=== PATIENT | female | born 1970 | race Caucasian/White ===

== ENCOUNTER → 2016-11-11 | Outpatient (REF) | payer MEDICARE, MEDICAID ==
[~2016-11-11] MED LIST: ASPI1TAB PO; AUGM875T27 PO; CALC600T7 PO; FLUN25SP; LEVO100T54 PO; LORA10TA2 PO; METF500T PO; NEXP1IMP SC; OMEP20CA3 PO; SIME180C PO; TYLE325T5 PO; VITA100037 PO
[2016-11-11 13:50] LABS: ALBUMIN 3.8 GM/DL (3.2-5.2); ALBUMIN/GLOBULIN RATIO 0.97 (1.00-1.93); ALKALINE PHOSPHATASE 100 U/L (45-117); ALT/SGPT 26 U/L (12-78); ANION GAP 10 MEQ/L (8-16); AST/SGOT 14 U/L (15-37); BILIRUBIN,TOTAL 0.2 MG/DL (0.2-1.0); BLOOD UREA NITROGEN 18 MG/DL (7-18); CALCIUM LEVEL 8.8 MG/DL (8.5-10.1); CARBON DIOXIDE LEVEL 26 MEQ/L (21-32); CHLORIDE LEVEL 105 MEQ/L (98-107); CREATININE FOR GFR 0.69 MG/DL (0.55-1.02); FREE T4 0.99 NG/DL (0.76-1.46); GLOMERULAR FILTRATION RATE > 60.0 (>58); GLUCOSE, FASTING 101 MG/DL (70-105); POTASSIUM SERUM 4.4 MEQ/L (3.5-5.1); SODIUM LEVEL 141 MEQ/L (136-145); TOTAL PROTEIN 7.7 GM/DL (6.4-8.2)
== END ==
LOC: M SFHCPLAZ 10:20
PROVIDERS: ATTEND Nurse Practitioner Family
DX: E88.81 Metabolic syndrome and other insulin resistance (principal); E03.9 Hypothyroidism, unspecified; E55.9 Vitamin D deficiency, unspecified

== ENCOUNTER → 2017-01-02 | Outpatient (REF) | payer MEDICARE, MEDICAID ==
[~2017-01-02] MED LIST changes: -AUGM875T27 PO; +AUGM875T28 PO; -METF500T PO; +METF500T13 PO; -VITA100037 PO; +VITA100067 PO
== END ==
LOC: M SFHCWAGY 13:43
PROVIDERS: ATTEND Nurse Practitioner Family
DX: Z12.4 Encounter for screening for malignant neoplasm of cervix (principal)
CPT/HCPCS: G0101; G0123

== ENCOUNTER → 2017-03-10 | Outpatient (REF) | payer MEDICARE, MEDICAID ==
[2017-03-10 11:57] LABS: ALBUMIN 3.5 GM/DL (3.2-5.2); ALBUMIN/GLOBULIN RATIO 0.92 (1.00-1.93); ALKALINE PHOSPHATASE 99 U/L (45-117); ALT/SGPT 23 U/L (12-78); ANION GAP 9 MEQ/L (8-16); AST/SGOT 10 U/L (15-37); BILIRUBIN,TOTAL 0.2 MG/DL (0.2-1.0); BLOOD UREA NITROGEN 14 MG/DL (7-18); CALCIUM LEVEL 9.2 MG/DL (8.5-10.1); CARBON DIOXIDE LEVEL 27 MEQ/L (21-32); CHLORIDE LEVEL 105 MEQ/L (98-107); CHOLESTEROL LEVEL 197 MG/DL (<200); CREATININE FOR GFR 0.59 MG/DL (0.55-1.02); GLOMERULAR FILTRATION RATE > 60.0 (>58); GLUCOSE, FASTING 116 MG/DL (70-105); POTASSIUM SERUM 4.3 MEQ/L (3.5-5.1); SODIUM LEVEL 141 MEQ/L (136-145); TOTAL PROTEIN 7.3 GM/DL (6.4-8.2); TRIGLYCERIDES LEVEL 295 MG/DL (<150)
== END ==
LOC: M SFHCPLAZ 09:15
PROVIDERS: ATTEND Nurse Practitioner Family
DX: E88.81 Metabolic syndrome and other insulin resistance (principal); E03.9 Hypothyroidism, unspecified; E55.9 Vitamin D deficiency, unspecified; Z79.899 Other long term (current) drug therapy

== ENCOUNTER → 2017-03-17 | Outpatient (CLI) | payer MEDICARE, MEDICAID ==
--- NOTE | 2017-03-17 10:17 | REPMRS ---
Patient History The patient states she had a clinical breast exam in 01/12 Patient is nulliparous. No known family history of cancer. Benign lumpectomy of the right breast, September 10, 2015. Benign ultrasound-guided core biopsy of both breasts, March 08, 2008. Taking hormonal contraceptives for 8 years. Digital Woman Screen Mammo: March 17, 2017 - Exam #: [id number] Bilateral CC and MLO view(s) were taken. Technologist: Rachel Morales, Technologist Prior study comparison: March 14, 2016, bilateral digital mammo screening bilat, performed at [facility]. November 29, 2014, right breast digital mammo diagnostic unilateral, performed at [facility]. FINDINGS: There are scattered fibroglandular densities. There has been no change in the appearance of the mammogram from the prior studies. There is a mild amount of residual fibroglandular tissue which is fairly symmetric. There is no interval development of dominant mass, architectural distortion, or clustered microcalcification suggestive of malignancy. ASSESSMENT: BI-RADS/ACR category 1 mammogram. Negative. Recommendation Routine screening mammogram in 1 year (for women over age 40). This mammogram was interpreted with the aid of an FDA-approved computer-aided dectection system. Electronically Signed By: Judah Neri MD 03/17/17 [id number]
== END ==
LOC: M WHC 08:52
PROVIDERS: ATTEND Nurse Practitioner Family
DX: Z12.31 Encounter for screening mammogram for malignant neoplasm of breast (principal); Z92.0 Personal history of contraception; Z85.3 Personal history of malignant neoplasm of breast; Z92.89 Personal history of other medical treatment
CPT/HCPCS: G0202; G0463

== ENCOUNTER → 2017-09-01 | Outpatient (REF) | payer MEDICARE, MEDICAID ==
[2017-09-01 11:38] LABS: ALBUMIN 3.6 GM/DL (3.2-5.2); ALBUMIN/GLOBULIN RATIO 0.88 (1.00-1.93); ALKALINE PHOSPHATASE 101 U/L (45-117); ALT/SGPT 26 U/L (12-78); ANION GAP 8 MEQ/L (8-16); AST/SGOT 11 U/L (7-37); BILIRUBIN,TOTAL 0.2 MG/DL (0.2-1.0); BLOOD UREA NITROGEN 13 MG/DL (7-18); CALCIUM LEVEL 9.2 MG/DL (8.5-10.1); CARBON DIOXIDE LEVEL 27 MEQ/L (21-32); CHLORIDE LEVEL 107 MEQ/L (98-107); CREATININE FOR GFR 0.67 MG/DL (0.55-1.30); FREE T4 1.04 NG/DL (0.76-1.46); GLOMERULAR FILTRATION RATE > 60.0 (>58); GLUCOSE, FASTING 106 MG/DL (70-100); POTASSIUM SERUM 4.4 MEQ/L (3.5-5.1); SODIUM LEVEL 142 MEQ/L (136-145); THYROID STIMULATING HORMONE 0.967 uIU/ML (0.358-3.740); TOTAL PROTEIN 7.7 GM/DL (6.4-8.2)
[2017-09-01 11:40] LABS: ESTIMATED AVERAGE GLUCOSE 134 MG/DL (60-110); HEMOGLOBIN A1c 6.3 %
[2017-09-01 11:49] LABS: TOTAL 25(OH) VITAMIN D 39.1 NG/ML (30.0-100.0)
== END ==
LOC: M SFHCPLAZ 07:49
DX: E88.81 Metabolic syndrome and other insulin resistance (principal); E03.9 Hypothyroidism, unspecified; E55.9 Vitamin D deficiency, unspecified; Z79.899 Other long term (current) drug therapy
CPT/HCPCS: 84443

== ENCOUNTER → 2017-12-09 | Outpatient (REF) | payer MEDICARE, MEDICAID ==
[2017-12-09 12:18] LABS: ALBUMIN 3.6 GM/DL (3.2-5.2); ALKALINE PHOSPHATASE 99 U/L (45-117); ALT/SGPT 27 U/L (12-78); ANION GAP 10 MEQ/L (8-16); AST/SGOT 10 U/L (7-37); BILIRUBIN,TOTAL 0.2 MG/DL (0.2-1.0); BLOOD UREA NITROGEN 15 MG/DL (7-18); CALCIUM LEVEL 9.4 MG/DL (8.5-10.1); CARBON DIOXIDE LEVEL 26 MEQ/L (21-32); CHLORIDE LEVEL 107 MEQ/L (98-107); CHOLESTEROL LEVEL 185 MG/DL (<200); CHOLESTEROL RISK RATIO 3.854 (<5); CREATININE FOR GFR 0.68 MG/DL (0.55-1.30); FREE T4 1.09 NG/DL (0.76-1.46); GLOMERULAR FILTRATION RATE > 60.0 (>58); GLUCOSE, FASTING 106 MG/DL (70-100); HDL CHOLESTEROL 48 MG/DL (>40); LDL CHOLESTEROL 114.4 MG/DL (<100); NON-HDL-C 137 MG/DL; POTASSIUM SERUM 4.6 MEQ/L (3.5-5.1); SODIUM LEVEL 143 MEQ/L (136-145); THYROID STIMULATING HORMONE 0.431 uIU/ML (0.358-3.740); TOTAL PROTEIN 7.6 GM/DL (6.4-8.2); TRIGLYCERIDES LEVEL 113 MG/DL (<150)
[2017-12-09 13:58] LABS: ESTIMATED AVERAGE GLUCOSE 131 MG/DL (60-110); HEMOGLOBIN A1c 6.2 %
== END ==
LOC: M SFHCPLAZ 09:41
DX: E88.81 Metabolic syndrome and other insulin resistance (principal); E03.9 Hypothyroidism, unspecified; R73.01 Impaired fasting glucose
CPT/HCPCS: 84443

== ENCOUNTER → 2017-12-16 | Outpatient (CLI) | payer MEDICARE, MEDICAID | LOC: M WUC 12:42 | DX: M25.512 Pain in left shoulder (principal) | CPT/HCPCS: 73030; G0463 ==

== ENCOUNTER → 2018-03-18 | Outpatient (REF) | payer MEDICARE, MEDICAID ==
[2018-03-18 13:49] LABS: ANION GAP 10 MEQ/L (8-16); BLOOD UREA NITROGEN 16 MG/DL (7-18); CALCIUM LEVEL 9.6 MG/DL (8.5-10.1); CARBON DIOXIDE LEVEL 25 MEQ/L (21-32); CHLORIDE LEVEL 106 MEQ/L (98-107); CREATININE FOR GFR 0.66 MG/DL (0.55-1.30); FREE T4 0.97 NG/DL (0.76-1.46); GLOMERULAR FILTRATION RATE > 60.0 (>58); GLUCOSE, FASTING 70 MG/DL (70-100); POTASSIUM SERUM 4.5 MEQ/L (3.5-5.1); SODIUM LEVEL 141 MEQ/L (136-145); THYROID STIMULATING HORMONE 0.815 uIU/ML (0.358-3.740)
[2018-03-18 13:55] LABS: TOTAL 25(OH) VITAMIN D 39.4 NG/ML (30.0-100.0)
[2018-03-18 15:34] LABS: ESTIMATED AVERAGE GLUCOSE 123 MG/DL (60-110); HEMOGLOBIN A1c 5.9 %
== END ==
LOC: M SFHCPLAZ 09:49
DX: E03.9 Hypothyroidism, unspecified (principal); E88.81 Metabolic syndrome and other insulin resistance; E55.9 Vitamin D deficiency, unspecified
CPT/HCPCS: 84443

== ENCOUNTER → 2018-09-22 | Outpatient (REF) | payer MEDICARE, MEDICAID ==
[~2018-09-22] MED LIST changes: +LORA-243 PO; -LORA10TA2 PO
[2018-09-22 11:54] LABS: ALBUMIN 3.7 GM/DL (3.2-5.2); ALT/SGPT 24 U/L (12-78); BILIRUBIN,TOTAL 0.2 MG/DL (0.2-1.0); BLOOD UREA NITROGEN 19 MG/DL (7-18); CARBON DIOXIDE LEVEL 28 MEQ/L (21-32); CHLORIDE LEVEL 107 MEQ/L (98-107); CHOLESTEROL LEVEL 222 MG/DL (<200); CHOLESTEROL RISK RATIO 4.111 (<5); CREATININE FOR GFR 0.61 MG/DL (0.55-1.30); FREE T4 1.14 NG/DL (0.76-1.46); GLOMERULAR FILTRATION RATE > 60.0 (>58); GLUCOSE, FASTING 116 MG/DL (70-100); HDL CHOLESTEROL 54 MG/DL (>40); LDL CHOLESTEROL 147 MG/DL (<100); NON-HDL-C 168 MG/DL; POTASSIUM SERUM 4.1 MEQ/L (3.5-5.1); SODIUM LEVEL 141 MEQ/L (136-145); THYROID STIMULATING HORMONE 0.332 uIU/ML (0.358-3.740); TOTAL 25(OH) VITAMIN D 32.5 NG/ML (30.0-100.0); TOTAL PROTEIN 7.4 GM/DL (6.4-8.2); TRIGLYCERIDES LEVEL 105 MG/DL (<150)
[2018-09-22 12:08] LABS: HEMOGLOBIN A1c 6.4 %
== END ==
LOC: M SFHCPLAZ 09:23
PROVIDERS: ATTEND Nurse Practitioner Family
DX: E88.81 Metabolic syndrome and other insulin resistance (principal); E03.9 Hypothyroidism, unspecified; E78.1 Pure hyperglyceridemia; E55.9 Vitamin D deficiency, unspecified

== ENCOUNTER → 2018-10-08 | Outpatient (REF) | payer MEDICARE, MEDICAID ==
[~2018-10-08] MED LIST changes: -ASPI1TAB PO; +ASPI81TA26 PO
== END ==
LOC: M SFHCPLAZ 16:32
PROVIDERS: ATTEND Physician Assistant
DX: R10.9 Unspecified abdominal pain (principal)

== ENCOUNTER → 2018-10-11 | Outpatient (CLI) | payer MEDICARE, MEDICAID ==
--- NOTE | 2018-10-11 11:16 | REP ---
UNILATERAL LEFT RIBS, PA CHEST, FIVE VIEWS: HISTORY: Flank pain. COMPARISON: 08/09/2014. The lungs are clear. The heart is normal in size. The pulmonary vasculature is normal in appearance. The bony structure is intact. IMPRESSION: No acute disease. Electronically Signed by Brian Wheeler MD 10/11/2018 11:21 A
== END ==
LOC: M WUC 10:06
PROVIDERS: ATTEND Physician Assistant
DX: R10.9 Unspecified abdominal pain (principal)

== ENCOUNTER → 2018-11-29 | Outpatient (CLI) | payer MEDICARE, MEDICAID ==
[~2018-11-29] MED LIST changes: +E-Z-GAS II EFFERVESCENT PACKET (SODIUM BICARB./CITRIC ACID/SIMETHICONE) As Ordered ONE; +E-Z-HD 98% w/w 340GM SUSP BTL As Ordered ONE; +E-Z-PAQUE 96% w/w SUSP 176GM BTL As Ordered ONE
--- NOTE | 2018-11-30 11:55 | REP ---
Examination Requested: Esophagram Barium Swallow Reason For Exam/Comment: Dysphasia Esophagram: The procedure was performed BOBBY Hua, under the direct supervision of Dr. Neri. The images were reviewed with Dr. Neri. A single PA chest x-ray is submitted as a turnstile collector film. The superior mediastinal structures are midline. The heart size is within normal limits. The lungs are clear. Liquid barium and gas producing granules were given in the erect position as well as liquid barium in the prone oblique position, in order to perform a double contrast esophagram examination. Oral and pharyngeal stages of the examination were unremarkable. Esophageal transport is efficient and there is no esophagitis, stricture, or mucosal ring noted. There is no hiatal hernia noted. Gastroesophageal reflux is demonstrated past the level of the jodi. Impression: 1. Gastroesophageal reflux past the level of the jodi. 0.4 minutes of fluoroscopy time was utilized for this procedure. Reviewed by BOBBY Adam 11/29/2018 04:13 P Electronically Signed by Judah Neri MD 11/30/2018 11:45 A
== END ==
LOC: M RAD 09:53
PROVIDERS: ATTEND Internal Medicine Gastroenterology
DX: K21.9 Gastro-esophageal reflux disease without esophagitis (principal)

== ENCOUNTER 2019-01-20 10:22 | Day surgery (SDC) | payer MEDICARE, MEDICAID ==
[~2019-01-20] VITALS: Ht 157.5 cm; Wt 92.1 kg
[~2019-01-20 10:22] MED LIST changes: -E-Z-GAS II EFFERVESCENT PACKET (SODIUM BICARB./CITRIC ACID/SIMETHICONE) As Ordered ONE; -E-Z-HD 98% w/w 340GM SUSP BTL As Ordered ONE; -E-Z-PAQUE 96% w/w SUSP 176GM BTL As Ordered ONE; +LEVO88TA3 PO; +NON-325T5 PO; +NS 1,000 ML IV ONE; -OMEP20CA3 PO; +OMEP20CA4 PO; +VITA-112 PO
[2019-01-20] MEDS ORDERED: PROPOFOL 200 MG/20 ML VIAL As Ordered ONE (13:05)
[2019-01-20] MEDS ORDERED: LIDOCAINE 2% INJ 100 MG/5 ML SDV (FOR ANES.) As Ordered ONE (13:05)
--- NOTE | 2019-01-20 13:10 | ROOR ---
Patient Name: Graciela Espinoza Procedure Date: 01/20/2019 12:55 PM Date of : 1970 Age: 48 Room: [facility] Gender: Female Note Status: Finalized Procedure: Upper GI endoscopy Indications: Oral phase dysphagia, Heartburn Providers: Harshil KOHLER MD Referring MD: Adela Smith NP Requesting Provider: Medicines: Monitored Anesthesia Care Complications: No immediate complications. Procedure: Pre-Anesthesia Assessment: - The heart rate, respiratory rate, oxygen saturations, blood pressure, adequacy of pulmonary ventilation, and response to care were monitored throughout the procedure. The Endoscope was introduced through the mouth, and advanced to the second part of duodenum. The upper GI endoscopy was accomplished without difficulty. The patient tolerated the procedure well. Findings: The examined esophagus was normal. No endoscopic abnormality was evident in the esophagus to explain the patient's complaint of dysphagia. This was biopsied with a cold forceps for evaluation of eosinophilic esophagitis. Scattered mild inflammation was found in the gastric antrum. Biopsies were taken with a cold forceps for histology. The exam of the stomach was otherwise normal. (large volume) The examined duodenum was normal. Impression: - Normal esophagus. No endoscopic esophageal abnormality to explain patient's dysphagia. Biopsied. - Mild antral gastritis. Biopsied. - Otherwise normal stomach. - Normal examined duodenum. Recommendation: - Use properly fitting dentures to eat/masticate. - Observe patient's clinical course. - Telephone endoscopist for pathology results in 2 weeks. Harshil Kohler MD Harshil KOHLER MD 01/20/2019 1:09:40 PM Electronically signed by Harshil KOHLER MD Number of Addenda: 0 Note Initiated On: 01/20/2019 12:55 PM Estimated Blood Loss: Estimated blood loss: none.
[2019-01-20 13:39] VITALS: BP 148/100
== END 2019-01-20 13:41 | disposition home or self-care (01) ==
LOC: M OPP 10:22
PROVIDERS: ATTEND Internal Medicine Gastroenterology
DX: R13.11 Dysphagia, oral phase (principal); K29.70 Gastritis, unspecified, without bleeding; E11.9 Type 2 diabetes mellitus without complications; I12.9 Hypertensive chronic kidney disease with stage 1 through stage 4 chronic kidney disease, or unspecified chronic kidney disease; I25.10 Atherosclerotic heart disease of native coronary artery without angina pectoris; E78.5 Hyperlipidemia, unspecified; N18.9 Chronic kidney disease, unspecified; E03.9 Hypothyroidism, unspecified; K21.9 Gastro-esophageal reflux disease without esophagitis; G80.9 Cerebral palsy, unspecified; E55.9 Vitamin D deficiency, unspecified; Z79.84 Long term (current) use of oral hypoglycemic drugs; Z79.899 Other long term (current) drug therapy

== ENCOUNTER → 2019-02-24 | Outpatient (REF) | payer MEDICARE, MEDICAID ==
[~2019-02-24] MED LIST changes: -NS 1,000 ML IV ONE
[2019-02-24 10:36] LABS: ALBUMIN 3.7 GM/DL (3.2-5.2); ALT/SGPT 35 U/L (12-78); BILIRUBIN,TOTAL 0.2 MG/DL (0.2-1.0); BLOOD UREA NITROGEN 18 MG/DL (7-18); CARBON DIOXIDE LEVEL 27 MEQ/L (21-32); CHLORIDE LEVEL 106 MEQ/L (98-107); CREATININE FOR GFR 0.74 MG/DL (0.55-1.30); FREE T4 1.03 NG/DL (0.76-1.46); GLOMERULAR FILTRATION RATE > 60.0 (>58); GLUCOSE, FASTING 120 MG/DL (70-100); MAGNESIUM LEVEL 1.7 MG/DL (1.8-2.4); POTASSIUM SERUM 4.1 MEQ/L (3.5-5.1); SODIUM LEVEL 141 MEQ/L (136-145); THYROID STIMULATING HORMONE 0.735 uIU/ML (0.358-3.740); TOTAL PROTEIN 7.6 GM/DL (6.4-8.2)
[2019-02-24 11:01] LABS: TOTAL 25(OH) VITAMIN D 43.2 NG/ML (30.0-100.0); VITAMIN B12 LEVEL 319 PG/ML
[2019-02-24 11:25] LABS: FOLATE 8.6 NG/ML
== END ==
LOC: M SFHCPLAZ 08:47
PROVIDERS: ATTEND Nurse Practitioner Family
DX: E88.81 Metabolic syndrome and other insulin resistance (principal); E03.9 Hypothyroidism, unspecified; K21.9 Gastro-esophageal reflux disease without esophagitis; E55.9 Vitamin D deficiency, unspecified
CPT/HCPCS: 36415; 80053; 82306; 82607; 82746; 83735; 84439; 84443; G0463

== ENCOUNTER → 2019-03-10 | Outpatient (CLI) | payer MEDICARE, MEDICAID ==
--- NOTE | 2019-03-10 11:27 | REPMRS ---
Patient History The patient states she had a clinical breast exam in 02/2019. Patient is nulliparous. No known family history of cancer. Benign lumpectomy of the right breast, September 10, 2015. Benign ultrasound-guided core biopsy of both breasts, March 08, 2008. Taking hormonal contraceptives for 10 years. 3D TOMOSYNTHESIS WAS PERFORMED. The [facility] lifetime risk for breast cancer is 12.8%. Digital Woman Screen Mammo: March 10, 2019 - Exam #: [id number] Bilateral CC and MLO view(s) were taken. Technologist: Tanesha Maya, Technologist Prior study comparison: March 09, 2018, bilateral digital woman screen mammo performed at [facility]. March 17, 2017, digital woman screen mammo performed at [facility]. FINDINGS: There are scattered fibroglandular densities. There has been no change in the appearance of the mammogram from the prior studies. There is a mild amount of residual fibroglandular tissue which is fairly symmetric. There is no interval development of dominant mass, architectural distortion, or clustered microcalcification suggestive of malignancy. Assessment: BI-RADS/ACR category 1 mammogram. Negative Mammogram. Recommendation Routine screening mammogram in 1 year (for women over age 40). This mammogram was interpreted with the aid of an FDA-approved computer-aided dectection system. Electronically Signed By: Judah eNri MD 03/10/19 [id number]
== END ==
LOC: M WHC 10:16
PROVIDERS: ATTEND Nurse Practitioner Family
DX: Z01.419 Encounter for gynecological examination (general) (routine) without abnormal findings (principal); Z12.31 Encounter for screening mammogram for malignant neoplasm of breast; Z86.018 Personal history of other benign neoplasm; Z92.0 Personal history of contraception
CPT/HCPCS: 77063; 77067; G0101

== ENCOUNTER → 2019-03-14 | Outpatient (REF) | payer MEDICARE, MEDICAID | LOC: M SFHCWAGY 17:44 | PROVIDERS: ATTEND Nurse Practitioner Women's Health | DX: S41.102D Unspecified open wound of left upper arm, subsequent encounter (principal) | CPT/HCPCS: 87070; 87077; 87186; G0463 ==

== ENCOUNTER 2019-03-16 09:14 | Emergency (ER) | payer MEDICARE, MEDICAID ==
[~2019-03-16] VITALS: Ht 157.5 cm; Wt 91.0 kg
[2019-03-16 10:48] LABS: BASO # 0.1 10^3/uL (0.0-0.2); BASO % 1.4 % (0.0-1.0); EOS # 0.1 10^3/uL (0.0-0.5); EOS % 1.7 % (0.0-3.0); HEMATOCRIT 40.1 % (36.0-47.0); HEMOGLOBIN 13.2 g/dl (12.0-15.5); LYMPH # 1.9 10^3/uL (1.5-5.0); LYMPH % 23.3 % (24.0-44.0); MEAN CORPUSCULAR HEMOGLOBIN 27.4 pg (27.0-33.0); MEAN CORPUSCULAR HGB CONC 32.9 g/dl (32.0-36.5); MEAN CORPUSCULAR VOLUME 83.4 fl (80.0-96.0); MONO # 0.5 10^3/uL (0.0-0.8); MONO % 6.3 % (0.0-5.0); NEUTROPHILS # 5.5 10^3/uL (1.5-8.5); NEUTROPHILS % 67.1 % (36.0-66.0); PLATELET COUNT, AUTOMATED 303 10^3/uL (150-450); RED BLOOD COUNT 4.81 10^6/uL (4.00-5.40); WHITE BLOOD COUNT 8.1 10^3/uL (4.0-10.0)
[2019-03-16 11:12] LABS: BLOOD UREA NITROGEN 11 MG/DL (7-18); C REACTIVE PROTEIN QUANTITATIV 0.93 MG/DL (0.00-0.30); CALCIUM LEVEL 9.3 MG/DL (8.5-10.1); CARBON DIOXIDE LEVEL 21 MEQ/L (21-32); CHLORIDE LEVEL 107 MEQ/L (98-107); CREATININE FOR GFR 0.85 MG/DL (0.55-1.30); GLOMERULAR FILTRATION RATE > 60.0 (>58); GLUCOSE, FASTING 93 MG/DL (70-100); POTASSIUM SERUM 4.1 MEQ/L (3.5-5.1); SODIUM LEVEL 138 MEQ/L (136-145)
[2019-03-16 11:24] LABS: ERYTHROCYTE SEDIMENTATION RATE 46 mm/hr (0-20)
[2019-03-16] MEDS ORDERED: NS 2,730 ML in IV 1 EA IV ONE (12:30)
[2019-03-16] MEDS ORDERED: VANCOMYCIN HCL 500 MG in D5W MINI-BAG PLUS 100 ML IV ONE (16:00)
--- NOTE | 2019-03-16 18:26 | REP ---
REASON: Assess position of implantable device. There is a curvilinear radiodensity in the distal medial left upper arm soft-tissues at the leve of the distal diaphysis of the humerus. This curvilinear radiodensity measures approximately 4 cm in length x 1.6 mm in width. The imaged osseous structures are normal. IMPRESSION: Implanted device as described above. Electronically Signed by Fortunato Long DO 03/16/2019 07:15 P
[2019-03-16 18:27] VITALS: BP 148/79
--- NOTE | 2019-03-17 13:25 | CR ---
DATE OF CONSULTATION: 03/16/2019 REASON FOR CONSULTATION: Infected Nexplanon. HISTORY OF PRESENT ILLNESS: The patient is a 48-year-old female who presented to the emergency room after having Nexplanon attempted removal a couple weeks ago by her primary. They were unable to remove it and since then she has had some slight purulent drainage from the site, but they were never able to remove the device. She came into emergency room and had some cultures obtained. She has already been on antibiotics for a week. Her white count is normal. No significant pain or swelling in the area, just persistent drainage and she wants it removed. Her MARKETING DATABASE COORDINATOR has already evaluated her at the bedside and they are not comfortable removing it, so they have asked to me to take a look as well. Currently she does have some slight tenderness in the area. There is some swelling overlying it. The device itself appears to be deep and is not easily palpable. No images have been obtained to find the exact location. No nausea or vomiting. No fevers or chills. She is on outpatient antibiotics already. PAST MEDICAL HISTORY: 1. Cerebral palsy. 2. Mental retardation. 3. Hypothyroidism. 4. Grave's disease. 5. Vitamin D deficiency. 6. Gastroesophageal reflux disease. 7. Diabetes. PAST SURGICAL HISTORY: Nose fracture repair, breast biopsies, Nexplanon implants. ALLERGIES: None. HOME MEDICATIONS: Please see medical record. REVIEW OF SYSTEMS: Pertinent and positive stated in the history of present illness. SOCIAL HISTORY: Denies drug, alcohol, tobacco abuse. FAMILY HISTORY: Noncontributory. PHYSICAL EXAMINATION: GENERAL: Alert and oriented times three. No acute distress. Vitals: Temperature 99, pulse 82, respirations 17, blood pressure 174/83, pulse ox 99% on room air. HEENT: Pupils equal round and react to light accommodation. Heart: S1, S2 regular rate and rhythm. Lungs: Clear to auscultation bilaterally. Abdomen: Soft, nontender, nondistended. Extremities: On the left upper medial arm there is about a 1/2 cm opening in the skin with some slight serous drainage currently. There is induration and swelling around it. No real erythema. No palpable fluid collections and no obvious purulent drainage. I was able palpate the entire upper arm and did not feel the implant itself. I also do not feel there is any obvious abscess formation there. LABORATORY DATA: White count 8.1, hemoglobin 13.2, lactic acid is 3 and 4-hour followup was 0.8. ASSESSMENT/PLAN: Patient is a 48-year-old female with Nexplanon implant in the left upper extremity that is unable to be removed at this point and likely has some infection, likely just skin north secondary to attempted removal. RECOMMENDATIONS: Continue with antibiotics at this time and discharge her home. I have asked them to obtain x-rays before she leaves and then send her to see me in the office tomorrow and I will reassess it with the x-rays to see if it helps me to triangulated it. If it easily palpable then I will remove it in the office. If not, then I will schedule with her to be done electively through the operating room.
== END 2019-03-16 18:28 | disposition home or self-care (01) ==
LOC: M ED 09:14
DX: R22.32 Localized swelling, mass and lump, left upper limb (principal); T85.79XA Infection and inflammatory reaction due to other internal prosthetic devices, implants and grafts, initial encounter; X58.XXXA Exposure to other specified factors, initial encounter; Y92.89 Other specified places as the place of occurrence of the external cause; E11.9 Type 2 diabetes mellitus without complications; K21.9 Gastro-esophageal reflux disease without esophagitis; E03.9 Hypothyroidism, unspecified; G80.9 Cerebral palsy, unspecified; F79 Unspecified intellectual disabilities; E55.9 Vitamin D deficiency, unspecified; Z79.899 Other long term (current) drug therapy; Z79.3 Long term (current) use of hormonal contraceptives; Z79.84 Long term (current) use of oral hypoglycemic drugs
CPT/HCPCS: 36415; 73060; 80048; 83605; 85025; 85652; 86140; 96361; 96374; 99284; J3370

== ENCOUNTER 2019-05-30 12:58 | Emergency (ER) | payer MEDICARE, MEDICAID ==
[~2019-05-30] VITALS: Ht 157.5 cm; Wt 93.2 kg
[2019-05-30] MEDS ORDERED: ASPIRIN 81 MG CHEW TABLET PO ONE (13:45)
[2019-05-30] MEDS ORDERED: GI COCKTAIL 50ML BTL(HYOSCYAMINE/MAALOX/LIDOCAINE VISCOUS)(1:3:1) PO ONE (13:45)
--- NOTE | 2019-05-30 14:01 | REP ---
CHEST, SINGLE VIEW: There is no evidence of acute infiltrate. No pleural effusion is seen. The heart is normal in size. The mediastinal silhouette is unremarkable. The visualized osseous structures are intact. There are degenerative changes of the spine. IMPRESSION: No acute pulmonary disease. Electronically Signed by Judah Neri MD 05/30/2019 03:25 P
[2019-05-30 14:18] LABS: BASO # 0.1 10^3/uL (0.0-0.2); BASO % 1.3 % (0.0-1.0); EOS # 0.1 10^3/uL (0.0-0.5); EOS % 0.7 % (0.0-3.0); HEMATOCRIT 38.2 % (36.0-47.0); HEMOGLOBIN 12.5 g/dl (12.0-15.5); LYMPH # 2.2 10^3/uL (1.5-5.0); MEAN CORPUSCULAR HEMOGLOBIN 27.4 pg (27.0-33.0); MEAN CORPUSCULAR HGB CONC 32.7 g/dl (32.0-36.5); MEAN CORPUSCULAR VOLUME 83.6 fl (80.0-96.0); MONO # 0.4 10^3/uL (0.0-0.8); MONO % 6.2 % (0.0-5.0); NEUTROPHILS # 4.2 10^3/uL (1.5-8.5); NEUTROPHILS % 60.5 % (36.0-66.0); PLATELET COUNT, AUTOMATED 307 10^3/uL (150-450); RED BLOOD COUNT 4.57 10^6/uL (4.00-5.40); WHITE BLOOD COUNT 6.9 10^3/uL (4.0-10.0)
[2019-05-30] MEDS ORDERED: LABETALOL HCL 100 MG/20 ML VIAL IV STA (14:19)
[2019-05-30 14:28] LABS: INR 1.04; PROTHROMBIN TIME 13.3 SECONDS (11.8-14.0)
[2019-05-30 14:53] LABS: ALBUMIN 3.6 GM/DL (3.2-5.2); ALT/SGPT 38 U/L (12-78); BILIRUBIN,DIRECT < 0.1 MG/DL (0.0-0.2); BILIRUBIN,TOTAL 0.2 MG/DL (0.2-1.0); BLOOD UREA NITROGEN 14 MG/DL (7-18); CARBON DIOXIDE LEVEL 28 MEQ/L (21-32); CHLORIDE LEVEL 107 MEQ/L (98-107); CK-MB VALUE MASS 1.1 NG/ML (<3.6); CPK CREATINE PHOSPHOKINASE 116 U/L (26-192); CREATININE FOR GFR 0.72 MG/DL (0.55-1.30); GLOMERULAR FILTRATION RATE > 60.0 (>58); GLUCOSE, FASTING 101 MG/DL (70-100); LIPASE 66 U/L (73-393); MB/CK RELATIVE INDEX 0.95 (< OR =4); POTASSIUM SERUM 3.7 MEQ/L (3.5-5.1); SODIUM LEVEL 142 MEQ/L (136-145); TOTAL PROTEIN 7.9 GM/DL (6.4-8.2); TROPONIN I < 0.02 NG/ML (< 0.10)
[2019-05-30 16:00] VITALS: BP 131/90
--- NOTE | 2019-05-30 17:37 | ECGEPIP ---
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
== END 2019-05-30 16:16 | disposition home or self-care (01) ==
LOC: M ED 12:58
DX: R07.89 Other chest pain (principal); I44.4 Left anterior fascicular block; E11.9 Type 2 diabetes mellitus without complications; K21.9 Gastro-esophageal reflux disease without esophagitis; E07.9 Disorder of thyroid, unspecified; Z79.84 Long term (current) use of oral hypoglycemic drugs; Z79.899 Other long term (current) drug therapy; N91.4 Secondary oligomenorrhea

== ENCOUNTER → 2019-05-30 | Outpatient (CLI) | payer MEDICARE, MEDICAID ==
[2019-05-30 13:58] LABS: FOLLICLE STIMULATING HORMONE 62.9 mIU/mL; LUTEINIZING HORMONE 41.9 mIU/mL
== END ==
LOC: M PLALAB 11:37
PROVIDERS: ATTEND Obstetrics & Gynecology
DX: N91.4 Secondary oligomenorrhea (principal)

== ENCOUNTER → 2019-06-07 | Outpatient (REF) | payer MEDICARE, MEDICAID ==
[~2019-06-07] MED LIST changes: +OMEP-172 PO; -OMEP20CA4 PO
[2019-06-07 13:55] LABS: FREE T4 1.09 NG/DL (0.76-1.46); THYROID STIMULATING HORMONE 0.442 uIU/ML (0.358-3.740)
[2019-06-07 13:56] LABS: FOLATE 4.1 NG/ML; TOTAL 25(OH) VITAMIN D 54.6 NG/ML (30.0-100.0)
== END ==
LOC: M SFHCPLAZ 11:12
PROVIDERS: ATTEND Nurse Practitioner Family
DX: E03.9 Hypothyroidism, unspecified (principal); E55.9 Vitamin D deficiency, unspecified; K21.9 Gastro-esophageal reflux disease without esophagitis
CPT/HCPCS: 36415; 82306; 82607; 82746; 83735; 84439; 84443; G0463

== ENCOUNTER → 2019-08-31 | Outpatient (REF) | payer MEDICARE, MEDICAID ==
[~2019-08-31] MED LIST changes: -OMEP-172 PO; +OMEP1CAP73 PO
[2019-08-31 12:39] LABS: FOLATE 12.7 NG/ML; FREE T4 1.27 NG/DL (0.76-1.46); MAGNESIUM LEVEL 1.9 MG/DL (1.8-2.4); THYROID STIMULATING HORMONE 0.164 uIU/ML (0.358-3.740); TOTAL 25(OH) VITAMIN D 44.6 NG/ML (30.0-100.0)
[2019-08-31 14:24] LABS: HEMOGLOBIN A1c 6.1 %
== END ==
LOC: M SFHCPLAZ 09:29
PROVIDERS: ATTEND Nurse Practitioner Family
DX: E03.9 Hypothyroidism, unspecified (principal); E55.9 Vitamin D deficiency, unspecified; K21.9 Gastro-esophageal reflux disease without esophagitis; E88.81 Metabolic syndrome and other insulin resistance

== ENCOUNTER → 2019-11-10 | Outpatient (REF) | payer MEDICARE, MEDICAID ==
[2019-11-10 16:19] LABS: HEMOGLOBIN A1c 6.3 %
[2019-11-10 16:41] LABS: ALT/SGPT 49 U/L (12-78); BILIRUBIN,TOTAL 0.1 MG/DL (0.2-1.0); BLOOD UREA NITROGEN 17 MG/DL (7-18); CALCIUM LEVEL 9.2 MG/DL (8.5-10.1); CARBON DIOXIDE LEVEL 29 MEQ/L (21-32); CHLORIDE LEVEL 105 MEQ/L (98-107); CHOLESTEROL LEVEL 275 MG/DL (<200); CHOLESTEROL RISK RATIO 5.092 (<5); FREE T4 0.54 NG/DL (0.76-1.46); GLOMERULAR FILTRATION RATE > 60.0 (>58); GLUCOSE, FASTING 97 MG/DL (70-100); HDL CHOLESTEROL 54 MG/DL (>40); LDL CHOLESTEROL 185 MG/DL (<100); NON-HDL-C 221 MG/DL; POTASSIUM SERUM 4.2 MEQ/L (3.5-5.1); SODIUM LEVEL 141 MEQ/L (136-145); TOTAL PROTEIN 7.9 GM/DL (6.4-8.2); TRIGLYCERIDES LEVEL 180 MG/DL (<150)
== END ==
LOC: M SFHCPLAZ 12:02
PROVIDERS: ATTEND Nurse Practitioner Family
DX: E03.9 Hypothyroidism, unspecified (principal); E88.81 Metabolic syndrome and other insulin resistance; Z79.899 Other long term (current) drug therapy
CPT/HCPCS: 36415; 80053; 80061; 83036; 84439; 84443; G0463

== ENCOUNTER → 2020-02-07 | Outpatient (REF) | payer MEDICARE, MEDICAID ==
[~2020-02-07] MED LIST changes: +CALC-212 PO; -CALC600T7 PO
[2020-03-08 16:13] LABS: INR 0.94; PROTHROMBIN TIME 12.8 SECONDS (11.8-14.0)
[2020-03-23 11:25] LABS: FREE T4 1.29 NG/DL (0.76-1.46); THYROID STIMULATING HORMONE 0.203 uIU/ML (0.358-3.740)
== END ==
LOC: M SFHCPLAZ 10:41
PROVIDERS: ATTEND Nurse Practitioner Family
DX: E03.9 Hypothyroidism, unspecified (principal); Z90.01 Acquired absence of eye

== ENCOUNTER → 2020-04-05 | Outpatient (CLI) | payer MEDICARE, MEDICAID ==
--- NOTE | 2020-04-05 11:43 | REPMRS ---
Patient History The patient states she had a clinical breast exam in March 2020.No known family history of cancer. Benign lumpectomy of the right breast, September 10, 2015. Benign ultrasound-guided core biopsy of both breasts, March 08, 2008. Taking hormonal contraceptives for 10 years. 3D TOMOSYNTHESIS WAS PERFORMED. The [facility] lifetime risk for breast cancer is 12.6%. VOLPARA DENSITY B. Digital Woman Screen Mammo: April 05, 2020 - Exam #: [id number] Bilateral CC and MLO view(s) were taken. Technologist: Rosa Sanchez, Technologist Prior study comparison: March 10, 2019, bilateral digital woman screen mammo performed at [facility]. March 09, 2018, bilateral digital woman screen mammo performed at [facility]. FINDINGS: There are scattered fibroglandular densities. There has been no change in the appearance of the mammogram from the prior studies. There is a mild amount of residual fibroglandular tissue which is fairly symmetric. There is no interval development of dominant mass, architectural distortion, or clustered microcalcification suggestive of malignancy. Assessment: BI-RADS/ACR category 1 mammogram. Negative Mammogram. Recommendation Routine screening mammogram in 1 year (for women over age 40). This mammogram was interpreted with the aid of an FDA-approved computer-aided dectection system. Electronically Signed By: Judah Neri MD 04/05/20 [id number]
== END ==
LOC: M WHC 10:40
PROVIDERS: ATTEND Nurse Practitioner Family
DX: Z01.419 Encounter for gynecological examination (general) (routine) without abnormal findings (principal); Z12.31 Encounter for screening mammogram for malignant neoplasm of breast; Z86.018 Personal history of other benign neoplasm; Z92.0 Personal history of contraception
CPT/HCPCS: 77063; 77067; 87624; G0101; G0123

== ENCOUNTER → 2020-04-05 | Outpatient (REF) | payer MEDICARE, MEDICAID | LOC: M SFHCWAGY 13:39 | PROVIDERS: ATTEND Nurse Practitioner Family | DX: Z12.4 Encounter for screening for malignant neoplasm of cervix (principal) | CPT/HCPCS: 87624; G0123 ==

== ENCOUNTER → 2020-05-03 | Outpatient (REF) | payer MEDICARE, MEDICAID ==
[2020-05-03 14:16] LABS: HEMOGLOBIN A1c 6.3 %
[2020-05-03 14:19] LABS: BLOOD UREA NITROGEN 17 MG/DL (7-18); CALCIUM LEVEL 9.6 MG/DL (8.5-10.1); CARBON DIOXIDE LEVEL 28 MEQ/L (21-32); CHLORIDE LEVEL 106 MEQ/L (98-107); CREATININE FOR GFR 0.79 MG/DL (0.55-1.30); GLOMERULAR FILTRATION RATE > 60.0 (>58); GLUCOSE, FASTING 94 MG/DL (70-100); POTASSIUM SERUM 4.5 MEQ/L (3.5-5.1); SODIUM LEVEL 140 MEQ/L (136-145)
[2020-05-03 14:31] LABS: FREE T4 0.4 NG/DL (0.76-1.46); THYROID STIMULATING HORMONE 58.1 uIU/ML (0.358-3.740); TOTAL 25(OH) VITAMIN D 44.3 NG/ML (30.0-100.0)
== END ==
LOC: M PLALAB 08:59
PROVIDERS: ATTEND Nurse Practitioner Family
DX: E03.9 Hypothyroidism, unspecified (principal); E88.81 Metabolic syndrome and other insulin resistance; E55.9 Vitamin D deficiency, unspecified

== ENCOUNTER 2020-05-29 10:45 | Emergency (ER) | payer MEDICARE, MEDICAID ==
[~2020-05-29] VITALS: Ht 157.5 cm; Wt 85.0 kg
[~2020-05-29 10:45] MED LIST changes: +ACET-838 PO; -NON-325T5 PO
[2020-05-29 10:46] VITALS: BP 136/64
== END 2020-05-29 12:00 | disposition home or self-care (01) ==
LOC: M ED 10:45
DX: S09.90XA Unspecified injury of head, initial encounter (principal); W01.10XA Fall on same level from slipping, tripping and stumbling with subsequent striking against unspecified object, initial encounter; Y92.099 Unspecified place in other non-institutional residence as the place of occurrence of the external cause; Y93.9 Activity, unspecified; Y99.9 Unspecified external cause status; Z79.899 Other long term (current) drug therapy

== ENCOUNTER → 2020-06-13 | Outpatient (REF) | payer MEDICARE, MEDICAID ==
[2020-06-13 18:13] LABS: FREE T4 1.15 NG/DL (0.76-1.46); THYROID STIMULATING HORMONE 1.35 uIU/ML (0.358-3.740)
== END ==
LOC: M SFHCPLAZ 14:14
PROVIDERS: ATTEND Nurse Practitioner Family
DX: E03.9 Hypothyroidism, unspecified (principal)
CPT/HCPCS: 36415; 84439; 84443; G0463

== ENCOUNTER → 2020-08-02 | Outpatient (REF) | payer MEDICARE, MEDICAID ==
[2020-08-02 12:51] LABS: FREE T4 1.16 NG/DL (0.76-1.46); THYROID STIMULATING HORMONE 1.36 uIU/ML (0.358-3.740); TOTAL 25(OH) VITAMIN D 45.1 NG/ML (30.0-100.0)
[2020-08-02 13:27] LABS: HEMOGLOBIN A1c 5.9 %
== END ==
LOC: M PLALAB 09:24
PROVIDERS: ATTEND Nurse Practitioner Family
DX: E03.9 Hypothyroidism, unspecified (principal); R73.03 Prediabetes; E55.9 Vitamin D deficiency, unspecified

== ENCOUNTER 2021-02-25 20:14 | Emergency (ER) | payer MEDICARE, MEDICAID ==
[~2021-02-25] VITALS: Ht 152.4 cm; Wt 83.1 kg
[2021-02-25 20:14] VITALS: BP 186/96
[~2021-02-25 20:14] MED LIST changes: -ACET-838 PO; +ACET32TAB PO; -SIME180C PO; +SIME180C25 PO
== END 2021-02-25 22:53 | disposition left against medical advice (07) ==
LOC: M ED 20:14
DX: Z53.21 Procedure and treatment not carried out due to patient leaving prior to being seen by health care provider (principal)

== ENCOUNTER → 2021-02-27 | Outpatient (CLI) | payer MEDICARE, MEDICAID ==
[2021-02-27 11:30] LABS: ALBUMIN 3.5 GM/DL (3.2-5.2); ALT/SGPT 34 U/L (12-78); BILIRUBIN,TOTAL 0.2 MG/DL (0.2-1.0); BLOOD UREA NITROGEN 15 MG/DL (7-18); CALCIUM LEVEL 9.2 MG/DL (8.5-10.1); CARBON DIOXIDE LEVEL 29 MEQ/L (21-32); CHLORIDE LEVEL 108 MEQ/L (98-107); CHOLESTEROL LEVEL 201 MG/DL (<200); CHOLESTEROL RISK RATIO 4.102 (<5); CREATININE FOR GFR 0.65 MG/DL (0.55-1.30); FREE T4 1.14 NG/DL (0.76-1.46); GLOMERULAR FILTRATION RATE > 60.0 (>58); GLUCOSE, FASTING 112 MG/DL (70-100); HDL CHOLESTEROL 49 MG/DL (>40); LDL CHOLESTEROL 119 MG/DL (<100); NON-HDL-C 152 MG/DL; POTASSIUM SERUM 3.8 MEQ/L (3.5-5.1); SODIUM LEVEL 141 MEQ/L (136-145); TOTAL PROTEIN 7.8 GM/DL (6.4-8.2); TRIGLYCERIDES LEVEL 166 MG/DL (<150)
[2021-02-27 11:32] LABS: TOTAL 25(OH) VITAMIN D 43.4 NG/ML (30.0-100.0)
== END ==
LOC: M PLALAB 08:29
PROVIDERS: ATTEND Nurse Practitioner Family
DX: E03.9 Hypothyroidism, unspecified (principal); R73.03 Prediabetes; E78.2 Mixed hyperlipidemia; E55.9 Vitamin D deficiency, unspecified

== ENCOUNTER → 2021-04-15 | Outpatient (CLI) | payer MEDICARE, MEDICAID ==
--- NOTE | 2021-04-15 13:23 | REPMRS ---
Patient History The patient states she has not had a clinical breast exam in over a year. No known family history of cancer. Benign lumpectomy of the right breast, September 10, 2015. Benign ultrasound-guided core biopsy of both breasts, March 08, 2008. Taking hormonal contraceptives for 10 years. Tomosynthesis is performed. Volpara breast density is b. [facility] lifetime risk of breast cancer 12.5%. Pt unsure of dates of covid vaccines, both vaccines in left arm. Patient states no breast complaints today. Patient has signed MRS History Sheet. Digital Woman Screen Mammo: April 15, 2021 - Exam #: [id number] Bilateral CC and MLO view(s) were taken. Technologist: RT Remigio Prior study comparison: April 05, 2020, bilateral digital woman screen mammo performed at [facility]. March 10, 2019, bilateral digital woman screen mammo performed at [facility]. FINDINGS: There are scattered fibroglandular densities. There has been no change in the appearance of the mammogram from the prior studies. There is a mild amount of residual fibroglandular tissue which is fairly symmetric. There is no interval development of dominant mass, architectural distortion, or clustered microcalcification suggestive of malignancy. Assessment: BI-RADS/ACR category 1 mammogram. Negative Mammogram. Recommendation Routine screening mammogram in 1 year (for women over age 40). This mammogram was interpreted with the aid of an FDA-approved computer-aided dectection system. Electronically Signed By: Judah Neri MD 04/15/21 [id number]
== END ==
LOC: M WHC 12:19
PROVIDERS: ATTEND Nurse Practitioner Family
DX: Z12.31 Encounter for screening mammogram for malignant neoplasm of breast (principal)

== ENCOUNTER → 2021-07-10 | Outpatient (CLI) | payer MEDICARE, MEDICAID ==
[2021-07-10 14:13] LABS: HEMOGLOBIN A1c 5.9 %
[2021-07-10 19:01] LABS: ALBUMIN 4.1 GM/DL (3.2-5.2); ALT/SGPT 34 U/L (12-78); BILIRUBIN,TOTAL 0.2 MG/DL (0.2-1.0); BLOOD UREA NITROGEN 22 MG/DL (7-18); CALCIUM LEVEL 9.9 MG/DL (8.5-10.1); CARBON DIOXIDE LEVEL 29 MEQ/L (21-32); CHLORIDE LEVEL 106 MEQ/L (98-107); CHOLESTEROL LEVEL 260 MG/DL (<200); CHOLESTEROL RISK RATIO 4.193 (<5); CREATININE FOR GFR 0.66 MG/DL (0.55-1.30); GLOMERULAR FILTRATION RATE > 60.0 (>58); GLUCOSE, FASTING 115 MG/DL (70-100); HDL CHOLESTEROL 62 MG/DL (>40); LDL CHOLESTEROL 161 MG/DL (<100); NON-HDL-C 198 MG/DL; POTASSIUM SERUM 4.5 MEQ/L (3.5-5.1); SODIUM LEVEL 140 MEQ/L (136-145); THYROID STIMULATING HORMONE 0.977 uIU/ML (0.358-3.740); TOTAL 25(OH) VITAMIN D 45.7 NG/ML (30.0-100.0); TOTAL PROTEIN 8.4 GM/DL (6.4-8.2); TRIGLYCERIDES LEVEL 184 MG/DL (<150)
== END ==
LOC: M PLALAB 09:57
PROVIDERS: ATTEND Nurse Practitioner Adult Health
DX: R73.03 Prediabetes (principal); E78.2 Mixed hyperlipidemia; E55.9 Vitamin D deficiency, unspecified; E03.9 Hypothyroidism, unspecified
CPT/HCPCS: 36415; 80053; 80061; 82306; 83036; 84443; G0463

== ENCOUNTER 2021-10-26 21:54 | Emergency (ER) | payer MEDICARE, MEDICAID ==
[~2021-10-26] VITALS: Ht 149.9 cm; Wt 86.9 kg
[2021-10-26 21:57] VITALS: BP 163/91
[2021-10-26] MEDS ORDERED: ACETAMINOPHEN TAB 650MG DOSE (2X325MG) PO ONE (22:05)
[2021-10-27] MEDS ORDERED: BENZ200C70 PO (01:02)
[2021-10-27] MEDS ORDERED: NIRM1TAB PO (01:02)
[2021-10-27] MEDS ORDERED: D-101000 PO (01:22)
[2021-10-27] MEDS ORDERED: OMEP40CA5 PO (01:22)
[2021-10-27] MEDS ORDERED: HOME MED LIST COMPLETE! XX SCH (01:25)
[2021-10-27] MEDS ORDERED: NIRMATRELVIR/RITONAVIR CO-PACK (EMERGENCY USE AUTH) PO SCH ×2 (09:00)
== END 2021-10-27 02:05 | disposition home or self-care (01) ==
LOC: M ED 21:54
DX: U07.1 COVID-19 (principal); G80.9 Cerebral palsy, unspecified; E11.9 Type 2 diabetes mellitus without complications; K21.9 Gastro-esophageal reflux disease without esophagitis; E03.9 Hypothyroidism, unspecified; Z79.899 Other long term (current) drug therapy; Z79.890 Hormone replacement therapy

== ENCOUNTER → 2022-01-02 | Outpatient (CLI) | payer MEDICARE, MEDICAID ==
[~2022-01-02] MED LIST changes: +BENZ200C70 PO; +D-101000 PO; +ETON68IM SC; -NEXP1IMP SC; +NIRM1TAB PO; +OMEP40CA5 PO
[2022-01-02 14:03] LABS: ALBUMIN 3.6 GM/DL (3.2-5.2); ALT/SGPT 23 U/L (12-78); BILIRUBIN,TOTAL 0.2 MG/DL (0.2-1.0); BLOOD UREA NITROGEN 13 MG/DL (7-18); CARBON DIOXIDE LEVEL 28 MEQ/L (21-32); CHLORIDE LEVEL 107 MEQ/L (98-107); CHOLESTEROL LEVEL 211 MG/DL (<200); CHOLESTEROL RISK RATIO 3.349 (<5); CREATININE FOR GFR 0.68 MG/DL (0.55-1.30); GLOMERULAR FILTRATION RATE > 60.0 (>58); GLUCOSE, FASTING 105 MG/DL (70-100); HDL CHOLESTEROL 63 MG/DL (>40); LDL CHOLESTEROL 129 MG/DL (<100); NON-HDL-C 148 MG/DL; POTASSIUM SERUM 3.7 MEQ/L (3.5-5.1); SODIUM LEVEL 142 MEQ/L (136-145); TOTAL PROTEIN 7.4 GM/DL (6.4-8.2); TRIGLYCERIDES LEVEL 97 MG/DL (<150)
[2022-01-02 14:08] LABS: TOTAL 25(OH) VITAMIN D 44.5 NG/ML (30.0-100.0)
[2022-01-02 14:34] LABS: HEMOGLOBIN A1c 5.9 %
== END ==
LOC: M PLALAB 09:28
PROVIDERS: ATTEND Nurse Practitioner Adult Health
DX: R73.03 Prediabetes (principal); E78.2 Mixed hyperlipidemia; E55.9 Vitamin D deficiency, unspecified; E03.9 Hypothyroidism, unspecified

== ENCOUNTER → 2022-04-03 | Outpatient (CLI) | payer MEDICARE, MEDICAID | LOC: M WHC 08:42 | PROVIDERS: ATTEND Nurse Practitioner Family | DX: Z12.31 Encounter for screening mammogram for malignant neoplasm of breast (principal); Z53.9 Procedure and treatment not carried out, unspecified reason ==

== ENCOUNTER → 2022-04-03 | Outpatient (REF) | payer MEDICARE, MEDICAID ==
[2022-04-03 14:24] LABS: ALBUMIN 3.6 GM/DL (3.2-5.2); ALT/SGPT 24 U/L (12-78); BILIRUBIN,TOTAL 0.2 MG/DL (0.2-1.0); BLOOD UREA NITROGEN 18 MG/DL (7-18); CALCIUM LEVEL 9.2 MG/DL (8.5-10.1); CARBON DIOXIDE LEVEL 29 MEQ/L (21-32); CHLORIDE LEVEL 104 MEQ/L (98-107); CHOLESTEROL LEVEL 226 MG/DL (<200); CREATININE FOR GFR 0.78 MG/DL (0.55-1.30); GLOMERULAR FILTRATION RATE > 60.0 (>58); GLUCOSE, FASTING 115 MG/DL (70-100); HDL CHOLESTEROL 50 MG/DL (>40); LDL CHOLESTEROL 130 MG/DL (<100); NON-HDL-C 176 MG/DL; SODIUM LEVEL 140 MEQ/L (136-145); THYROID STIMULATING HORMONE 0.931 uIU/ML (0.358-3.740); TOTAL PROTEIN 7.6 GM/DL (6.4-8.2); TRIGLYCERIDES LEVEL 231 MG/DL (<150)
[2022-04-03 14:37] LABS: MALB URINE SIEMENS 29.7 MG/L
[2022-04-03 14:58] LABS: HEMOGLOBIN A1c 6.2 %
[2022-04-03 16:20] LABS: TOTAL 25(OH) VITAMIN D 48.6 NG/ML (30.0-100.0)
== END ==
LOC: M SFHCPLAZ 12:48
PROVIDERS: ATTEND Nurse Practitioner Adult Health
DX: Z00.00 Encounter for general adult medical examination without abnormal findings (principal); E11.9 Type 2 diabetes mellitus without complications; E78.2 Mixed hyperlipidemia; E55.9 Vitamin D deficiency, unspecified

== ENCOUNTER → 2022-04-03 | Outpatient (REF) | payer MEDICARE, MEDICAID | LOC: M SFHCWAGY 13:21 | PROVIDERS: ATTEND Nurse Practitioner Family | DX: Z12.4 Encounter for screening for malignant neoplasm of cervix (principal); R85.615 Unsatisfactory cytologic smear of anus ==

== ENCOUNTER → 2022-05-09 | Outpatient (REF) | payer MEDICARE, MEDICAID | LOC: M PLALAB 15:25 | PROVIDERS: ATTEND Nurse Practitioner Family | DX: Z12.4 Encounter for screening for malignant neoplasm of cervix (principal) | CPT/HCPCS: 87624; G0123 ==

== ENCOUNTER → 2022-09-15 | Outpatient (CLI) | payer MEDICARE, MEDICAID ==
[2022-09-15 14:12] LABS: ALBUMIN 3.5 G/DL (3.2-5.2); ALKALINE PHOSPHATASE 101 U/L (46-116); ALT/SGPT 19 U/L (7.0-40); AST/SGOT 14 U/L (<34); BILIRUBIN,TOTAL 0.2 MG/DL (0.3-1.2); BLOOD UREA NITROGEN 16 MG/DL (9-23); CALCIUM LEVEL 8.6 MG/DL (8.5-10.1); CARBON DIOXIDE LEVEL 29 MMOL/L (20-31); CHLORIDE LEVEL 105 MMOL/L (98-107); CHOLESTEROL LEVEL 246 MG/DL (<200); CHOLESTEROL RISK RATIO 3.66 (<5); CREATININE FOR GFR 0.67 MG/DL (0.55-1.30); GLOMERULAR FILTRATION RATE > 60.0 (>51); GLUCOSE, FASTING 106 MG/DL (60-100); HDL CHOLESTEROL 67.2 MG/DL (>40); NON-HDL-C 178.8 MG/DL; POTASSIUM SERUM 4.2 MMOL/L (3.5-5.1); SODIUM LEVEL 141 MMOL/L (136-145); TOTAL PROTEIN 7.5 G/DL (5.7-8.2); TRIGLYCERIDES LEVEL 139 MG/DL (<150)
[2022-09-15 14:15] LABS: HEMOGLOBIN A1c 5.9 % (4.0-6.0)
[2022-09-15 14:17] LABS: TOTAL 25(OH) VITAMIN D 49.5 NG/ML (20.0-100.0)
== END ==
LOC: M PLALAB 10:22
PROVIDERS: ATTEND Nurse Practitioner Adult Health
DX: E78.2 Mixed hyperlipidemia (principal); E55.9 Vitamin D deficiency, unspecified; E03.9 Hypothyroidism, unspecified; E88.81 Metabolic syndrome and other insulin resistance

== ENCOUNTER → 2023-03-04 | Outpatient (CLI) | payer MEDICARE, MEDICAID ==
[2023-03-04 14:38] LABS: ALBUMIN 3.6 G/DL (3.2-5.2); ALKALINE PHOSPHATASE 88 U/L (46-116); ALT/SGPT 15 U/L (7.0-40); AST/SGOT < 8 U/L (<34); BILIRUBIN,TOTAL 0.2 MG/DL (0.3-1.2); BLOOD UREA NITROGEN 22 MG/DL (9-23); CALCIUM LEVEL 9.3 MG/DL (8.5-10.1); CARBON DIOXIDE LEVEL 28 MMOL/L (20-31); CHLORIDE LEVEL 107 MMOL/L (98-107); CHOLESTEROL LEVEL 205 MG/DL (<200); CHOLESTEROL RISK RATIO 3.51 (<5); CREATININE FOR GFR 0.62 MG/DL (0.55-1.30); GLOMERULAR FILTRATION RATE > 60.0 (>51); GLUCOSE, FASTING 101 MG/DL (60-100); HDL CHOLESTEROL 58.3 MG/DL (>40); LDL CHOLESTEROL 127.9 MG/DL (<100); MAGNESIUM LEVEL 1.3 MG/DL (1.8-2.4); NON-HDL-C 146.7 MG/DL; SODIUM LEVEL 140 MMOL/L (136-145); TOTAL PROTEIN 7.3 G/DL (5.7-8.2); TRIGLYCERIDES LEVEL 94 MG/DL (<150)
[2023-03-04 14:40] LABS: THYROID STIMULATING HORMONE 1.464 uIU/ML (0.55-4.78); TOTAL 25(OH) VITAMIN D 44.9 NG/ML (20.0-100.0)
[2023-03-04 14:51] LABS: HEMOGLOBIN A1c 6.2 % (4.0-6.0)
== END ==
LOC: M PLALAB 11:31
PROVIDERS: ATTEND Nurse Practitioner Adult Health
DX: E88.81 Metabolic syndrome and other insulin resistance (principal); E78.2 Mixed hyperlipidemia; K21.9 Gastro-esophageal reflux disease without esophagitis; E03.9 Hypothyroidism, unspecified; E55.9 Vitamin D deficiency, unspecified; Z79.899 Other long term (current) drug therapy

== ENCOUNTER → 2023-05-11 | Outpatient (CLI) | payer MEDICARE, MEDICAID | LOC: M WHC 14:26 | PROVIDERS: ATTEND Nurse Practitioner Family | DX: Z12.31 Encounter for screening mammogram for malignant neoplasm of breast (principal) ==

== ENCOUNTER → 2023-09-23 | Outpatient (REF) | payer MEDICARE, MEDICAID ==
[2023-09-23 14:21] LABS: THYROID STIMULATING HORMONE 7.301 uIU/ML (0.55-4.78)
[2023-09-23 14:22] LABS: TOTAL 25(OH) VITAMIN D 57.4 NG/ML (20.0-100.0)
[2023-09-23 14:27] LABS: ALBUMIN 3.5 G/DL (3.2-5.2); ALKALINE PHOSPHATASE 101 U/L (46-116); ALT/SGPT 12 U/L (7.0-40); AST/SGOT 9 U/L (<34); BILIRUBIN,TOTAL 0.2 MG/DL (0.3-1.2); BLOOD UREA NITROGEN 17 MG/DL (9-23); CALCIUM LEVEL 9.3 MG/DL (8.5-10.1); CARBON DIOXIDE LEVEL 27 MMOL/L (20-31); CHLORIDE LEVEL 106 MMOL/L (98-107); CHOLESTEROL LEVEL 228 MG/DL (<200); CHOLESTEROL RISK RATIO 3.83 (<5); CREATININE FOR GFR 0.67 MG/DL (0.55-1.30); GLOMERULAR FILTRATION RATE > 60.0 (>51); GLUCOSE, FASTING 109 MG/DL (60-100); HDL CHOLESTEROL 59.4 MG/DL (>40); MAGNESIUM LEVEL 1.6 MG/DL (1.8-2.4); NON-HDL-C 168.6 MG/DL; SODIUM LEVEL 141 MMOL/L (136-145); TOTAL PROTEIN 7.3 G/DL (5.7-8.2); TRIGLYCERIDES LEVEL 83 MG/DL (<150)
[2023-09-23 18:37] LABS: HEMOGLOBIN A1c 6.1 % (4.0-6.0)
== END ==
LOC: M LABWUC 12:58
PROVIDERS: ATTEND Nurse Practitioner Adult Health
DX: E03.9 Hypothyroidism, unspecified (principal); K21.9 Gastro-esophageal reflux disease without esophagitis; E78.2 Mixed hyperlipidemia; Z79.899 Other long term (current) drug therapy

== ENCOUNTER → 2024-03-04 | Outpatient (CLI) | payer MEDICARE, MEDICAID ==
[2024-03-04 14:46] LABS: ALBUMIN 3.6 G/DL (3.2-5.2); ALKALINE PHOSPHATASE 113 U/L (46-116); ALT/SGPT 13 U/L (7.0-40); AST/SGOT 9 U/L (<34); BILIRUBIN,TOTAL 0.3 MG/DL (0.3-1.2); BLOOD UREA NITROGEN 15 MG/DL (9-23); CALCIUM LEVEL 9.8 MG/DL (8.5-10.1); CARBON DIOXIDE LEVEL 28 MMOL/L (20-31); CHLORIDE LEVEL 104 MMOL/L (98-107); CHOLESTEROL LEVEL 253 MG/DL (<200); CHOLESTEROL RISK RATIO 4.61 (<5); CREATININE FOR GFR 0.75 MG/DL (0.55-1.30); GLOMERULAR FILTRATION RATE > 60.0 (>51); GLUCOSE, FASTING 110 MG/DL (60-100); HDL CHOLESTEROL 54.8 MG/DL (>40); MAGNESIUM LEVEL 1.8 MG/DL (1.8-2.4); NON-HDL-C 198.2 MG/DL; POTASSIUM SERUM 4.4 MMOL/L (3.5-5.1); SODIUM LEVEL 139 MMOL/L (136-145); TOTAL PROTEIN 8.1 G/DL (5.7-8.2); TRIGLYCERIDES LEVEL 186 MG/DL (<150)
[2024-03-04 14:50] LABS: THYROID STIMULATING HORMONE 1.685 uIU/ML (0.55-4.78)
== END ==
LOC: M PLALAB 09:18
PROVIDERS: ATTEND Nurse Practitioner Adult Health
DX: E74.39 Other disorders of intestinal carbohydrate absorption (principal); E78.2 Mixed hyperlipidemia; K21.9 Gastro-esophageal reflux disease without esophagitis; E03.9 Hypothyroidism, unspecified; E55.9 Vitamin D deficiency, unspecified; Z79.899 Other long term (current) drug therapy

== ENCOUNTER → 2024-07-12 | Outpatient (CLI) | payer MEDICARE, MEDICAID ==
[~2024-07-12] MED LIST changes: -SIME180C25 PO; +SIME1CAP4 PO
== END ==
LOC: M WHC 09:29
PROVIDERS: ATTEND Nurse Practitioner Family
DX: Z12.31 Encounter for screening mammogram for malignant neoplasm of breast (principal); R92.323 Mammographic fibroglandular density, bilateral breasts

== ENCOUNTER → 2024-07-12 | Outpatient (REF) | payer MEDICARE, MEDICAID ==
[2024-07-15 13:26] LABS: HPV APTIMA Not Detected (Not Detected)
== END ==
LOC: M SFHCWAGY 13:02
PROVIDERS: ATTEND Nurse Practitioner Family
DX: Z12.4 Encounter for screening for malignant neoplasm of cervix (principal)
CPT/HCPCS: 87624; G0123

== ENCOUNTER → 2024-09-05 | Outpatient (CLI) | payer MEDICARE, MEDICAID ==
[2024-09-05 14:28] LABS: HEMOGLOBIN A1c 5.9 % (4.0-6.0)
[2024-09-05 14:49] LABS: ALBUMIN 3.4 G/DL (3.2-5.2); ALKALINE PHOSPHATASE 109 U/L (35-104); ALT/SGPT 13 U/L (7.0-40); AST/SGOT 10 U/L (<34); BILIRUBIN,TOTAL 0.2 MG/DL (0.3-1.2); BLOOD UREA NITROGEN 14 MG/DL (9-23); CALCIUM LEVEL 9.4 MG/DL (8.5-10.1); CARBON DIOXIDE LEVEL 27 MMOL/L (20-31); CHLORIDE LEVEL 106 MMOL/L (98-107); CHOLESTEROL LEVEL 235 MG/DL (<200); CHOLESTEROL RISK RATIO 4.39 (<5); CREATININE FOR GFR 0.69 MG/DL (0.55-1.30); GLOMERULAR FILTRATION RATE > 60.0 (>51); GLUCOSE, FASTING 99 MG/DL (60-100); HDL CHOLESTEROL 53.5 MG/DL (>40); LDL CHOLESTEROL 140.1 MG/DL (<100); NON-HDL-C 181.5 MG/DL; POTASSIUM SERUM 4.6 MMOL/L (3.5-5.1); SODIUM LEVEL 143 MMOL/L (136-145); TRIGLYCERIDES LEVEL 207 MG/DL (<150)
[2024-09-05 14:51] LABS: TOTAL 25(OH) VITAMIN D 53.7 NG/ML (20.0-100.0)
== END ==
LOC: M PLALAB 09:50
PROVIDERS: ATTEND Nurse Practitioner Adult Health
DX: E74.39 Other disorders of intestinal carbohydrate absorption (principal); E78.2 Mixed hyperlipidemia; E55.9 Vitamin D deficiency, unspecified; Z79.899 Other long term (current) drug therapy